=== PATIENT | female | born 1955 | race African-American/Black ===

== ENCOUNTER 2021-06-18 08:48 | Inpatient (IN) | payer SELFPAY ==
[2021-06-18] VITALS (28 sets, daily range): BP systolic 113–180; BP diastolic 68–95
[~2021-06-18] VITALS: Ht 160 cm; Wt 52.6 kg
[2021-06-18] MEDS ORDERED: IOHEXOL-350 100 ML BOTTLE ONE (09:08)
[2021-06-18] MEDS ORDERED: ALTEPLASE 100MG/VIAL IV STA (09:32)
[2021-06-18] MEDS ORDERED: ALTEPLASE IV STA (09:32)
[2021-06-18] MEDS ORDERED: LABETALOL 5MG/ML SYR 20 MG/4 ML SYRINGE IV ONE ×2 (09:45→10:15)
[2021-06-18] MEDS ORDERED: ALTEPLASE 100MG/VIAL IV NR (09:45)
[2021-06-18] MEDS ORDERED: ALTEPLASE IV NR ×2 (10:00)
[2021-06-18] MEDS ORDERED: *NO ASPIRIN X 24 HOURS XX SCH (10:00)
[2021-06-18 10:04] LABS: CREATINE KINASE 92 IU/L (26-192)
[2021-06-18] MEDS ORDERED: HYDRALAZINE 20MG/ML VIAL IV ONE (10:30)
[2021-06-18 11:31] LABS: HEMATOCRIT. 39.7 % (36.0-48.0); MEAN CORPUSCULAR HEMOGLOBIN 27.7 pg (28.0-32.0); MEAN PLATELET VOLUME 8.5 fl (7.4-10.4); PLATELET 181 x1000/uL (130-400); RED BLOOD CELL COUNT 4.67 mill/uL (4.2-5.4); RED CELL DISTRIBUTION WIDTH 13.9 % (11.6-14.6)
[2021-06-18 11:32] LABS: CLARITY URINE CLEAR (CLEAR); COLOR URINE YELLOW (YELLOW); KETONES URINE NEGATIVE (NEGATIVE); LEUKOCYTE ESTERASE URINE NEGATIVE (NEGATIVE); NITRITE URINE NEGATIVE (NEGATIVE); OCCULT BLOOD URINE NEGATIVE (NEGATIVE); PROTEIN URINE NEGATIVE (NEGATIVE); SPECIFIC GRAVITY URINE 1.031 (1.005-1.030); UROBILINOGEN URINE 0.2 E.U./dL (0.2-1.0)
[2021-06-18 11:40] LABS: CHLORIDE 107 mEq/L (98-107)
[2021-06-18 11:47] LABS: *AMPHETAMINES SCREEN URINE NEGATIVE (NEGATIVE); *BARBITURATES SCREEN URINE NEGATIVE (NEGATIVE); *BENZODIAZEPINES SCREEN URINE NEGATIVE (NEGATIVE); *COCAINE SCREEN URINE NEGATIVE (NEGATIVE); CANNABINOID URINE SCREEN NEGATIVE (NEGATIVE); ETHANOL BLOOD < 10 mg/dL; METHADONE URINE SCREEN NEGATIVE (NEGATIVE); OPIATES URINE SCREEN NEGATIVE (NEGATIVE); PHENCYCLIDINE URINE SCREEN NEGATIVE (NEGATIVE); PLATELET ESTIMATE NORMAL
[2021-06-18] MEDS ORDERED: NICARDIPINE 40MG/200ML PREMIX 200 ML IV PRN (14:00)
[2021-06-18] MEDS ORDERED: DEXTROSE 50% WATER 50ML SYRINGE IV PRN (16:30)
[2021-06-18] MEDS ORDERED: ONDANSETRON HCL 4MG/2ML INJ IV PRN (16:30)
[2021-06-18] MEDS ORDERED: BLOOD SUGAR DIAGNOSTIC STRIP TEST SCH (16:30)
[2021-06-18] MEDS ORDERED: NICARDIPINE IV PRN (16:30)
[2021-06-18] MEDS ORDERED: NICARDIPINE 50 MG in SODIUM CHLORIDE 0.9% 230 ML IV PRN (16:45)
[2021-06-18] MEDS: PANTOPRAZOLE SODIUM 40 MG/VIAL IV SCH (16:51)
[2021-06-18] MEDS: BLOOD SUGAR DIAGNOSTIC STRIP TEST SCH ×2 (16:55→20:14)
[2021-06-18] MEDS: INSULIN LISPRO 100 UNITS/ML SUBCUT SCH ×2 (16:55→20:14)
[2021-06-18] MEDS: ACETAMINOPHEN 650MG/20.3ML UDC PO PRN (16:59)
[2021-06-18 17:39] LABS: PARTIAL THROMBOPLASTIN TIME 23.9 sec (23.4-31.0); PROTHROMBIN TIME 10.9 sec (9.6-11.0)
[2021-06-18] MEDS: DEXT 5%/LACTATED RINGERS 1,000 ML IV SCH (17:45)
[2021-06-19] VITALS (59 sets, daily range): BP systolic 126–184; BP diastolic 50–115
[2021-06-19] MEDS: DEXT 5%/LACTATED RINGERS 1,000 ML IV SCH ×2 (06:07→20:20)
[2021-06-19] MEDS: INSULIN LISPRO 100 UNITS/ML SUBCUT SCH ×4 (06:07→20:19)
[2021-06-19] MEDS: BLOOD SUGAR DIAGNOSTIC STRIP TEST SCH ×4 (06:08→20:19)
[2021-06-19] MEDS: PANTOPRAZOLE SODIUM 40 MG/VIAL IV SCH (08:28)
[2021-06-19] MEDS: ACETAMINOPHEN 650MG/20.3ML UDC PO PRN (09:07)
[2021-06-19 09:28] LABS: T4 FREE 1.15 ng/dL (0.76-1.46)
[2021-06-19 10:31] LABS: BASOPHILS % 0.4 % (0.0-2.0); EOSINOPHILS % 0.9 % (0.0-5.0); HEMATOCRIT. 38.6 % (36.0-48.0); HEMOGLOBIN. 12.6 g/dL (12.0-16.0); LYMPHOCYTES % 18.3 % (20.0-50.0); MEAN CORPUSCULAR HEMOGLOBIN 27.7 pg (28.0-32.0); MEAN PLATELET VOLUME 9.7 fl (7.4-10.4); MONOCYTES % 11.1 % (2.0-8.0); NEUTROPHILS % 69.3 % (40.0-76.0); PLATELET 198 x1000/uL (130-400); RED BLOOD CELL COUNT 4.54 mill/uL (4.2-5.4); RED CELL DISTRIBUTION WIDTH 14.1 % (11.6-14.6)
[2021-06-19 10:39] LABS: CHLORIDE 113 mEq/L (98-107)
[2021-06-19] MEDS: CLOTRIMAZOLE 1% CREAM 15GM TOP SCH ×3 (16:00→20:00)
[2021-06-19] MEDS ORDERED: AMLO10TA80 MT (16:49)
[2021-06-19] MEDS ORDERED: ATEN50TA MT (16:50)
[2021-06-19] MEDS ORDERED: HYDR25TA MT (16:50)
[2021-06-19] MEDS ORDERED: ATORVASTATIN CALCIUM 40MG TABLET PO SCH (21:00)
[2021-06-20] VITALS (24 sets, daily range): BP systolic 129–190; BP diastolic 60–145
[2021-06-20] MEDS ORDERED: *PATIENT'S OWN MEDICATION STORAGE XX SCH (05:45)
[2021-06-20 06:27] LABS: BASOPHILS % 0.8 % (0.0-2.0); HEMATOCRIT. 39.7 % (36.0-48.0); HEMOGLOBIN. 13.3 g/dL (12.0-16.0); LYMPHOCYTES % 21.4 % (20.0-50.0); MEAN CORPUSCULAR HEMOGLOBIN 28.3 pg (28.0-32.0); MEAN CORPUSCULAR VOLUME 84.5 fL (81.0-99.0); MEAN PLATELET VOLUME 9.2 fl (7.4-10.4); NEUTROPHILS % 66.8 % (40.0-76.0); PLATELET 170 x1000/uL (130-400); RED CELL DISTRIBUTION WIDTH 13.7 % (11.6-14.6)
[2021-06-20] MEDS: INSULIN LISPRO 100 UNITS/ML SUBCUT SCH ×3 (06:43→16:46)
[2021-06-20] MEDS: BLOOD SUGAR DIAGNOSTIC STRIP TEST SCH ×3 (06:43→16:46)
[2021-06-20] MEDS: DEXT 5%/LACTATED RINGERS 1,000 ML IV SCH (06:45)
[2021-06-20 07:09] LABS: CHLORIDE 107 mEq/L (98-107)
[2021-06-20 07:15] LABS: HDL CHOLESTEROL 66 mg/dL (40-59); LDL CHOLESTEROL 115 mg/dL (5-100)
[2021-06-20] MEDS: PANTOPRAZOLE SODIUM 40 MG/VIAL IV SCH (09:04)
[2021-06-20] MEDS ORDERED: POTASSIUM CHLORIDE 20MEQ TABLET SR PO NR (13:15)
[2021-06-20] MEDS ORDERED: ASPIRIN 81MG EC TABLET PO SCH (14:30)
[2021-06-20] MEDS ORDERED: AMLO10TA80 MT (16:31)
[2021-06-20] MEDS ORDERED: LIP40 PO (16:31)
[2021-06-20] MEDS ORDERED: ASPI-1406 PO (16:31)
== END 2021-06-20 18:12 | disposition home or self-care (01) | DRG 45 ==
LOC: ER 08:48 → EDBD 08:48 → EDBEDREQSVC 12:01 → EDBEDREQ 14:46 → MICUSO 14:50 → ENRESERV 14:53 → 8WST 06-20 05:47
PROVIDERS: ADMIT Family Medicine; ATTEND Family Medicine
DX: I63.9 Cerebral infarction, unspecified (principal); D72.829 Elevated white blood cell count, unspecified; E11.9 Type 2 diabetes mellitus without complications; E78.5 Hyperlipidemia, unspecified; G51.0 Bell's palsy; R47.1 Dysarthria and anarthria; H51.8 Other specified disorders of binocular movement; I10 Essential (primary) hypertension; Z86.73 Personal history of transient ischemic attack (TIA), and cerebral infarction without residual deficits; R77.8 Other specified abnormalities of plasma proteins
CPT/HCPCS: 36415; 70496; 70498; 70551; 71045; 80048; 80053; 80061; 80305; 80320; 81003; 82550; 82962; 83036; 83605; 83880; 84439; 84443; 84484; 85025; 85379; 85384; 93005; 93306; 97161; 97166; 99291; C9113; J0360; J1815; J2997; J3490; J7050; J7121; Q9967; G0480